=== PATIENT | female | born 1985 | race American Indian/Alaskan Native ===

== ENCOUNTER 2021-02-04 04:34 | Emergency (ER) | payer MEDICAID ==
[2021-02-04 04:47] VITALS: BP 153/86
[2021-02-04] MEDS ORDERED: ACETAMINOPHEN 500 MG TAB PO ONE (05:14)
[2021-02-04] MEDS ORDERED: IBUPROFEN 600 MG TAB PO ONE (05:14)
--- NOTE | 2021-02-04 05:40 | Emergency Department Report ---
ED Extremity Problem HPI - General Chief complaint: Extremity Injury, Lower Stated complaint: SWOLLEN FEET Source: patient Mode of arrival: Ambulatory Limitations: No Limitations - History of Present Illness Initial comments: Patient is a 35-year-old -Armenian female with a history of morbid obesity who presents to the ED with acute onset persistent intermittent bilatera l of foot and ankle swelling that improves with elevation and movement but gets worse with rest for over 3 weeks. Patient states that she is currently homeless and lives in her vehicle with her 6 children having moved from [place] to [place] recently. Patient states that she used to be active on her feet until she came to [place] and has not been able to get a place to stay with her children. Patient denies fall, traumatic injury, leg pains, chest pain or shortness of breath, change in vision, fever, chills, cough, heavy lifting, nausea and vomiting or back pain. MD Complaint: extremity swelling (Bilateral feet swelling) -: Sudden, week(s) (1) Location: bilateral lower extremity (feet) History of Same: Yes -: No myalgia, No arthralgia, No fever, No associated dyspnea, No associated chest pain Radiation: distal Severity scale (0 -10): 0 Quality: dull Consistency: intermittent Improves with: movement Worsens with: rest Associated Symptoms: denies other symptoms. denies: chest pain, shortness of breath, fever, myalgias, arthralgias, rash, other - Related Data Previous Rx's Medication Instructions Recorded Last Taken Type Ibuprofen [Motrin] 800 mg PO Q8HR PRN #30 tablet 02/04/21 Unknown Rx Allergies Allergy/AdvReac Type Severity Reaction Status Date / Time No Known Allergies Allergy Verified 02/04/21 05:19 ED Review of Systems ROS: Stated complaint: SWOLLEN FEET Other details as noted in HPI Constitutional: denies: chills, fever Eyes: denies: eye pain, eye discharge, vision change ENT: denies: ear pain, throat pain Respiratory: denies: cough, shortness of breath, wheezing Cardiovascular: denies: chest pain, palpitations Endocrine: no symptoms reported Gastrointestinal: denies: abdominal pain, nausea, vomiting, diarrhea Genitourinary: denies: urgency, dysuria, discharge Musculoskeletal: joint swelling (Bilateral foot swelling). denies: back pain, arthralgia Skin: denies: rash, lesions Neurological: denies: headache, weakness, paresthesias Psychiatric: denies: anxiety, depression Hematological/Lymphatic: denies: easy bleeding, easy bruising ED Past Medical Hx - Past Medical History Previous Medical History?: Yes Additional medical history: Obesity - Surgical History Past Surgical History?: Yes Hx Cholecystectomy: Yes Additional Surgical History: Hernia repair - Social History Smoking Status: Never Smoker Substance Use Type: None - Medications Home Medications: Home Medications Medication Instructions Recorded Confirmed Last Taken Type Ibuprofen [Motrin] 800 mg PO Q8HR PRN #30 tablet 02/04/21 Unknown Rx ED Physical Exam - General Limitations: No Limitations General appearance: alert, in no apparent distress - Head Head exam: Present: atraumatic, normocephalic, normal inspection - Eye Eye exam: Present: normal appearance, PERRL, EOMI Pupils: Present: normal accommodation - ENT ENT exam: Present: normal exam, normal orophraynx, mucous membranes moist, TM's normal bilaterally, normal external ear exam - Neck Neck exam: Present: normal inspection, full ROM - Respiratory Respiratory exam: Present: normal lung sounds bilaterally. Absent: respiratory distress, wheezes, rales, rhonchi, chest wall tenderness, accessory muscle use, decreased breath sounds - Cardiovascular Cardiovascular Exam: Present: normal rhythm, tachycardia, normal heart sounds. Absent: systolic murmur, diastolic murmur, rubs, gallop - GI/Abdominal GI/Abdominal exam: Present: soft, normal bowel sounds. Absent: distended, tenderness, guarding, rebound, hypoactive bowel sounds - Extremities Exam Extremities exam: Present: normal inspection, full ROM, normal capillary refill, pedal edema, other (Bilateral nonpiting mild edema of bilateral feet). Absent: tenderness, joint swelling, calf tenderness - Back Exam Back exam: Present: normal inspection, full ROM. Absent: tenderness, CVA tenderness (R), CVA tenderness (L), muscle spasm, paraspinal tenderness, vertebral tenderness - Neurological Exam Neurological exam: Present: alert, oriented X3, CN II-XII intact, normal gait, reflexes normal - Psychiatric Psychiatric exam: Present: normal affect, normal mood - Skin Skin exam: Present: warm, dry, intact, normal color. Absent: rash ED Course Vital Signs 02/04/21 04:42 Temperature 100.1 F H Pulse Rate 102 H Respiratory 18 Rate Blood Pressure 153/86 O2 Sat by Pulse 99 Oximetry ED Medical Decision Making - Medical Decision Making There is a 35-year-old -Armenian female with a history of morbid obesity who presents to the ED with acute onset persistent intermittent bilateral of foot and ankle swelling that improves with elevation and movement but gets worse with rest for over 3 weeks. Patient states that she is currently homeless and lives in her vehicle with her 6 children having moved from [place] to [place] recently. Patient states that she used to be active on her feet until she came to [place] and has not been able to get a place to stay with her children. In the ED, patient is alert and oriented x3 and is not in any distress but slightly febrile and tachycardic in triage although she states that the temperature is not accurate because she had been drinking hot coffee when her temperature was checked. On reevaluation, patient is hemodynamically stable with no fever or tachycardia. Based on the history and physical exam findings, the patient symptoms are due to dependent edema due to lack of movement. Patient was advised to elevate her leg above her heart to improve on the swelling on her feet and to walk around to ensure that the muscles aid in the fluid return to the her. Patient was discharged home and advised to take Tylenol or ibuprofen as needed for pain. Patient was otherwise advised return to the ED immediately if symptoms get worse. - Differential Diagnosis Dependent edema; muscle strain; muscle spasm; anxiety Critical care attestation.: If time is entered above; I have spent that time in minutes in the direct care of this critically ill patient, excluding procedure time. ED Disposition Clinical Impression: Bilateral swelling of feet and ankles Disposition: 01 HOME / SELF CARE / HOMELESS Is pt being admited?: No Does the pt Need Aspirin: No Condition: Stable Instructions: [facility], Edema Additional Instructions: Take medication with food for swelling and inflammation, elevate your legs above your heart, wear compression stockings to improve volume a ankle and foot swelling, follow-up with your primary care physician as advised in 7 to 10 days. Return to the ED immediately if symptoms get worse. Prescriptions: Ibuprofen [Motrin] 800 mg PO Q8HR PRN #30 tablet PRN Reason: Pain and swelling Referrals: PRIMARY CARE, [Primary Care Provider] - 3-5 Days [facility] [Provider Group] - 3-5 Days Time of Disposition: 05:44 Print Language: ITALIAN
== END 2021-02-04 06:01 | disposition home or self-care (01) ==
LOC: ED 04:34
DX: M25.474 Effusion, right foot (principal); M25.475 Effusion, left foot; M25.472 Effusion, left ankle; M25.471 Effusion, right ankle; E66.9 Obesity, unspecified
CPT/HCPCS: 99282